=== PATIENT | male | born 1995 | race African-American/Black ===

== ENCOUNTER 2016-06-21 22:51 | Emergency (ER) | payer OTHER ==
[~2016-06-21] VITALS: Ht 167.6 cm; Wt 63.5 kg
[2016-06-21 23:06] VITALS: BP 140/68
[2016-06-21] MEDS ORDERED: LIDOCAINE 1% / SOD BICARB 8.4% 20 ML VIAL. IJ ONE (23:15)
--- NOTE | 2016-06-21 23:46 | PHYS DOC ---
Past Medical History Past Medical History: No Pertinent History Past Surgical History: No Surgical History Alcohol Use: Occasionally Drug Use: None Adult General Chief Complaint Chief Complaint: EYE PROBLEMS HPI HPI Patient is a 20 year old male presents emergency room with complaint of a laceration to his right upper eyelid/eyebrow region that occurred approximately 2 hours prior to arrival. Patient states that he was participating in some sports activities when he got an elbow to the right eyebrow/eyelid region. He denies being knocked out. He denies any nausea or vomiting or headache. He denies any visual disturbances. Review of Systems Review of Systems Constitutional: Denies fever or chills [] Eyes: Denies change in visual acuity, redness, or eye pain HENT: Denies nasal congestion or sore throat [] Respiratory: Denies cough or shortness of breath [] Cardiovascular: No additional information not addressed in HPI [] GI: Denies abdominal pain, nausea, vomiting, bloody stools or diarrhea [] : Denies dysuria or hematuria [] Musculoskeletal: Denies back pain or joint pain [] Integument: Laceration to right upper eyelid. Neurologic: Denies headache, focal weakness or sensory changes Endocrine: Denies polyuria or polydipsia [] Current Medications Current Medications Current Medications Medications (Trade) Dose Ordered Sig/Dave Start Time Stop Time Status Last Admin Dose Admin Lidocaine/Sodium Bicarbonate (Buffered Lidocaine 1%) 20 ml 1X ONCE 06/21/16 23:15 06/21/16 23:16 DC 06/21/16 23:15 20 ML Allergies Allergies Allergies Coded Allergies Type Severity Reaction Last Updated Verified No Known Drug Allergies 06/21/16 No Physical Exam Physical Exam Constitutional: Well developed, well nourished, no acute distress, non-toxic appearance. [] HENT: Normocephalic, bilateral external ears normal, oropharynx moist, no oral exudates, nose normal. Eyes: PERRLA, EOMI, conjunctiva normal, no discharge. 2.5 cm laceration to lateral aspect of the left upper eyelid/eyebrow margin. There is no palpable instability or crepitus. There is no step-off in the region. Neck: Normal range of motion, no tenderness, supple, no stridor. [] Cardiovascular:Heart rate regular rhythm, no murmur [] Lungs & Thorax: Bilateral breath sounds clear to auscultation [] Abdomen: Bowel sounds normal, soft, no tenderness, no masses, no pulsatile masses. [] Skin: Warm, dry, no erythema, no rash. [] Back: No tenderness, no CVA tenderness. [] Extremities: No tenderness, no cyanosis, no clubbing, ROM intact, no edema. [] Neurologic: Alert and oriented X 3, normal motor function, normal sensory function, no focal deficits noted. [] Psychologic: Affect normal, judgement normal, mood normal. [] Current Patient Data Vital Signs Vital Signs Date Time Temp Pulse Resp B/P Pulse Ox O2 Delivery O2 Flow Rate FiO2 06/21/16 23:06 98.2 103 18 98 Room Air 98.2 EKG EKG [] Radiology/Procedures Radiology/Procedures Procedure note: 2.5 cm laceration to the lateral aspect of the right upper eyebrow was anesthetized with buffered 1% lidocaine. Wound was cleansed with Betadine solution and rinsed with saline. Wound was explored for foreign bodies. No foreign bodies were found. Wound margins were approximated utilizing 6-0 nylon in a simple interrupted fashion of a single-layer closure for total of 5 stitches. He tolerated the procedure well. Course & Med Decision Making Course & Med Decision Making Patient declined the tetanus shot for declared "hoahaoism reasons". Dragon Disclaimer Dragon Disclaimer This electronic medical record was generated, in whole or in part, using a voice recognition dictation system. Departure Departure Impression: Primary Impression: Laceration, eyelid, right Disposition: 01 HOME, SELF-CARE Condition: IMPROVED Referrals: NO PCP (PCP) Patient Instructions: Facial Laceration, [id number], Head Injury, Adult, Easy -to-Read Additional Instructions: 1. Stitches should be removed in 5-7 days. 2. Apply ice packs to the area every 2 hours for 30 minutes at a time to help minimize swelling. 3. Review the discharge instructions for reasons to return to the emergency department. 4. Please use the pamphlet provided for assistance in finding a primary care doctor's office to follow-up with for wound check and suture removal. 5. You can take acetaminophen every 4-6 hours or ibuprofen every 8 hours for the discomfort. ANDRE SIMS Jun 21, 2016 23:46
== END 2016-06-21 23:56 | disposition home or self-care (01) ==
LOC: ER 22:51
DX: S01.111A Laceration without foreign body of right eyelid and periocular area, initial encounter (principal); Y04.2XXA Assault by strike against or bumped into by another person, initial encounter; Y93.89 Activity, other specified; Y92.89 Other specified places as the place of occurrence of the external cause; Y99.8 Other external cause status
CPT/HCPCS: 12011; 99283-25